=== PATIENT | female | born 1945 | race Caucasian/White ===

== ENCOUNTER → 2016-12-14 08:34 | Outpatient (CLI) | payer MEDICARE, OTHER ==
[~2016-12-14] VITALS: Ht 152.4 cm; Wt 61.8 kg
[~2016-12-14 08:34] MED LIST: ALTOPREV40 MG PO; ESTRACE 0.5 MG0.5 MG PO; FLUTICASONE PRO16 GM NASAL; OMEPRAZOLE20 M1 PO
[2016-12-14 09:19] VITALS: BP 165/73; Ht 152.4 cm; Wt 61.8 kg
[2016-12-14 09:27] LABS: BASOPHILS 0.2 % (0-2); EOSINOPHILS 1.5 % (0-7); HEMATOCRIT 39.9 % (36.0-48.0); HEMOGLOBIN 13.1 g/dL (12-16); IMMATURE GRANULOCYTES 0.2 % (0-5); LYMPHOCYTES 31.1 % (15-50); MCHC 32.8 g/dL (31.0-37.0); MCV 82.3 fL (80.0-100.0); MEAN PLATELET VOLUME 9.9 fL (7.4-10.4); MONOCYTES 6.6 % (2-11); NEUTROPHILS 60.4 % (40-80); PLATELET COUNT 211 10x3/uL (130-400); RBC 4.85 10x6/uL (4.00-5.40); RDW 14.7 % (11.5-14.5); WBC 5.3 10x3/uL (4.8-10.8)
[2016-12-14 09:34] LABS: ANION GAP 10.8 mmol/L (8-16); APTT 27.2 SECONDS (22.8-39.4); CALCIUM 9.4 mg/dL (8.5-10.1); CARBON DIOXIDE 31.1 mmol/L (21.0-32.0); CREATININE - SERUM 0.9 mg/dL (0.6-1.3); INR 0.97 (0.85-1.17); POTASSIUM - SERUM 3.9 mmol/L (3.5-5.1); PROTIME 12.8 SECONDS (11.6-15.0)
--- NOTE | 2016-12-14 14:15 | NUR ---
1155 REFER TO PROCEDURE VITAL SHEET IN CHART FOR FREQUENT VITALS.
== END | disposition home or self-care (01) ==
LOC: D.OPS 08:34 → D.SP 11:00
PROVIDERS: General Practice
DX: C64.1 Malignant neoplasm of right kidney, except renal pelvis (principal); E78.5 Hyperlipidemia, unspecified; K21.9 Gastro-esophageal reflux disease without esophagitis